=== PATIENT | female | born 1990 | race Caucasian/White ===

== ENCOUNTER 2017-02-14 08:12 | Emergency (ER) | payer MEDICAID, OTHER ==
[~2017-02-14] VITALS: Wt 62.9 kg
[~2017-02-14 08:12] MED LIST: FERR27TA PO; GLYB2.5T2 PO; GLYB5TAB3 PO; PREN1TAB12 PO; PREN1TAB49 PO
--- NOTE | 2017-02-14 08:38 | ERD ---
ER Documentation Chief Complaint Chief Complaint VAG BLEEDING, ONSET THIS AM, PT 8 WKS PG HPI 26-year-old female who is A0 last menstrual pain December 23 comes to emergency department vaginal bleeding that started this morning. She describes bright red blood followed by brown colored vaginal bleeding, there was mild to moderate. She states that she has not experienced any pelvic pain, abdominal pain. She denies fevers, chills, chest pain, shortness of breath. She is not sure who her OB is, she had a positive urine test done at a clinic 1- 2 weeks ago. ROS All systems reviewed and are negative except as per history of present illness. PMhx/Soc History of Surgery: No Anesthesia Reaction: No Hx Neurological Disorder: No Hx Respiratory Disorders: No Hx Cardiac Disorders: No Hx Psychiatric Problems: No Hx Miscellaneous Medical Probl: No Hx Alcohol Use: No Hx Substance Use: No Hx Tobacco Use: No Physical Exam Vitals Vital Signs Date Time Temp Pulse Resp B/P Pulse Ox O2 Delivery O2 Flow Rate FiO2 02/14/17 08:14 97.1 73 17 142/74 97 Physical Exam General: Well-developed, well-nourished. The patient appears in no acute distress. HEENT: Head is normocephalic, atraumatic. No scleral icterus. Neck: Supple. Nontender. Lungs: Clear to auscultation. Normal air movement. Heart: Regular rate and rhythm. S1 and S2 are normal. No murmurs, gallops, or rubs. Abdomen: Soft, nontender, nondistended. Bowel sounds are normoactive. Extremities: No clubbing or cyanosis. Normal pulses. Moving extremities x 4. No weakness. Neurologic: Alert and oriented 3. No focal deficits. Skin: Normal turgor. No rash or lesions. Result Diagram: 02/14/17 0740 Results 24 hrs Laboratory Tests Test 02/14/17 07:40 02/14/17 08:30 White Blood Count 5.110^3/ul Red Blood Count 4.3610^6/ul Hemoglobin 12.8g/dl Hematocrit 36.2% Mean Corpuscular Volume 83.0fl Mean Corpuscular Hemoglobin 29.4pg Mean Corpuscular Hemoglobin Concent 35.4g/dl Red Cell Distribution Width 11.8% Platelet Count 63085^3/UL Mean Platelet Volume 10.8fl Neutrophils % 55.4% Lymphocytes % 33.5% Monocytes % 10.3% Eosinophils % 0.6% Basophils % 0.2% Nucleated Red Blood Cells % 0.0/100WBC Neutrophils # 2.810^3/ul Lymphocytes # 1.710^3/ul Monocytes # 0.510^3/ul Eosinophils # 0.010^3/ul Basophils # 0.010^3/ul Nucleated Red Blood Cells # 0.010^3/ul Urine Color STRAW Urine Clarity CLEAR Urine pH 6.0 Urine Specific [place] 1.006 Urine Ketones TRACEmg/dL Urine Nitrite NEGATIVEmg/dL Urine Bilirubin NEGATIVEmg/dL Urine Urobilinogen NEGATIVEmg/dL Urine Leukocyte Esterase NEGATIVELeu/ul Urine Microscopic RBC 1/HPF Urine Microscopic WBC 1/HPF Urine Hemoglobin 2+mg/dL Urine Glucose NEGATIVEmg/dL Urine Total Protein NEGATIVEmg/dl DIAGNOSTIC IMAGING REPORT Patient: LOREN JOSEPH : 1990 Age: 26 Sex: F MR #: [id number] DOS: 02/14/17 0823 Ordering MD: ESTUARDO VALDIVIA PA-C Location: [facility] Room/Bed: PROCEDURE: OB Ultrasound. CLINICAL INDICATION: Positive test. Vaginal bleeding. TECHNIQUE: Ultrasound of the pelvis was performed with transabdominal sonography in the axial and sagittal planes. COMPARISON: No prior study is available for comparison. FINDINGS: There is a single intrauterine gestational sac. pole and yolk sac are present. There is heart motion. heart rate is 150 beats per minute. [place]-rump length is 1.06 cm. Mean sac diameter is 2.73 cm. Menstrual age by ultrasound dates is 7 weeks 3 days. This indicates an expected date of delivery of 09/30/2017. The right ovary appears normal measuring 3.7 x 2.4 x 2.8 cm. The left ovary is not visualized. Color Doppler and pulsed Doppler sonography demonstrate normal flow to the the right ovary. There is no other pelvic mass or free fluid. IMPRESSION: 1. Single live intrauterine gestation of 7 weeks 3 days menstrual age by ultrasound dates. 2. Expected date of delivery is 09/30/2017. RPTAT: QQ .Ronn Solano MD, Date Time Electronically viewed and signed by .Ronn Solano MD, MD on 02/14/2017 09:23 .R/ CC: ESTUARDO VALDIVIA PA-C Procedures/MDM 18-year-old female comes in with vaginal bleeding in her first trimester, the patient has a single live intrauterine at 7 weeks and 3 days, without adnexal masses, ectopic , or subchorionic hemorrhage. Patient is A+, no indication for RhoGam at this time. CBC shows a normal hemoglobin, no leukocytosis, and urine is negative for infection. Patient will be advised to recheck with her OB in 3-4 days. Departure Diagnosis: Primary Impression: Vaginal bleeding in patient at less than 20 weeks gestation Condition: Good ESTUARDO VALDIVIA PA-C Feb 14, 2017 08:38
--- NOTE | 2017-02-14 09:24 | RADRPT ---
PROCEDURE: OB Ultrasound. CLINICAL INDICATION: Positive test. Vaginal bleeding. TECHNIQUE: Ultrasound of the pelvis was performed with transabdominal sonography in the axial and sagittal planes. COMPARISON: No prior study is available for comparison. FINDINGS: There is a single intrauterine gestational sac. pole and yolk sac are present. There is heart motion. heart rate is 150 beats per minute. [place]-rump length is 1.06 cm. Mean sac diameter is 2.73 cm. Menstrual age by ultrasound dates is 7 weeks 3 days. This indicates an expected date of delivery of 09/30/2017. The right ovary appears normal measuring 3.7 x 2.4 x 2.8 cm. The left ovary is not visualized. Color Doppler and pulsed Doppler sonography demonstrate normal flow to the the right ovary. There is no other pelvic mass or free fluid. IMPRESSION: 1. Single live intrauterine gestation of 7 weeks 3 days menstrual age by ultrasound dates. 2. Expected date of delivery is 09/30/2017. RPTAT: QQ .Ronn Solano MD, MD Date Time Electronically viewed and signed by .Ronn Solano MD, on 02/14/2017 09:23 .R/
[2017-02-14 09:37] LABS: ADD UMIC YES; UR ASCORBIC ACID NEGATIVE (NEGATIVE); UR BILIRUBIN (Dip) NEGATIVE (NEGATIVE); UR BLOOD (Dip) 2+ mg/dL (NEGATIVE); UR CLARITY CLEAR (CLEAR); UR COLOR STRAW (YELLOW); UR GLUCOSE (Dip) NEGATIVE (NEGATIVE); UR KETONES (Dip) TRACE mg/dL (NEGATIVE); UR LEUKOCYTE ESTERASE (Dip) NEGATIVE Leu/ul (NEGATIVE); UR NITRITE (Dip) NEGATIVE (NEGATIVE); UR RBC 1 /HPF (0-5); UR SPECIFIC GRAVITY (Dip) 1.006 (1.003-1.030); UR TOTAL PROTEIN (Dip) NEGATIVE (NEGATIVE); UR UROBILINOGEN (Dip) NEGATIVE (NEGATIVE)
[2017-02-14 09:39] LABS: BASOPHILS % 0.2 % (0.0-2.0); EOSINOPHILS % 0.6 % (0.0-7.0); HEMATOCRIT 36.2 % (37.0-47.0); HEMOGLOBIN 12.8 g/dl (12.0-16.0); LYMPHOCYTES # 1.7 10^3/ul (0.8-2.9); LYMPHOCYTES % 33.5 % (15.0-51.0); MEAN CORPUSCULAR HEMOGLOBIN 29.4 pg (29.0-33.0); MEAN CORPUSCULAR HGB CONC 35.4 g/dl (32.0-37.0); MEAN PLATELET VOLUME 10.8 fl (7.4-10.4); MONOCYTE # 0.5 10^3/ul (0.3-0.9); MONOCYTES % 10.3 % (0.0-11.0); NEUTROPHIL # 2.8 10^3/ul (1.6-7.5); NEUTROPHILS % 55.4 % (39.0-77.0); PLATELET COUNT 185 10^3/UL (140-415); RED BLOOD COUNT 4.36 10^6/ul (4.20-5.40); RED CELL DISTRIBUTION WIDTH 11.8 % (11.5-14.5); WHITE BLOOD COUNT 5.1 10^3/ul (4.8-10.8)
== END 2017-02-14 10:46 | disposition home or self-care (01) ==
LOC: MERGE 08:12 → FTE 08:12
DX: O20.9 Hemorrhage in early pregnancy, unspecified (principal); R10.2 Pelvic and perineal pain; Z3A.01 Less than 8 weeks gestation of pregnancy
CPT/HCPCS: 36415; 76801; 81001; 84702; 85025; 86900; 86901; Z7502

== ENCOUNTER 2017-08-29 23:24 | Inpatient (IN) | END 2017-09-04 16:18 | disposition home or self-care (01) | DRG 765 ==